=== PATIENT | female | born 1950 | race Caucasian/White ===

== ENCOUNTER 2023-04-13 09:57 | Outpatient (AMB) | payer BC, SELFPAY ==
--- NOTE | 2023-04-13 10:01 | A.OFFVIS_ITS ---
Intake Vital Signs 04/13/23 10:02 Height 5 ft 3 in Weight 101 lb BMI 17.9 BP 98/68 Blood Pressure Location Lt brachial Position Sitting Respiration 14 Pulse 62 Pulse Source Pulse Oximeter Temp 98.6 F Temp Source Skin Pulse Oximetry (%) 98 Oxygen Delivery Method Room Air Intake Visit Reasons: Lt knee pain?pseudogout Allergies acetaminophen [From Vicodin] Adverse Reaction (Unknown, Verified 04/13/23 10:03) Unknown hydrocodone [From Vicodin] Adverse Reaction (Unknown, Verified 04/13/23 10:03) Unknown levofloxacin [From Levaquin] Adverse Reaction (Unknown, Verified 04/13/23 10:03) Palpitations Medication List - Last Reconciled 04/13/23 by Jonathan Bergman MD [id number] 50-300-40 mg 1 cap PO DAILY PRN diltiazem HCl 180 mg PO DAILY ibandronate mg PO levalbuterol tartrate 45 mcg/actuation 2 puffs inhalation Q4-6H PRN lorazepam 0.5 mg PO TID PRN HPI HPI Comments History of Present Illness Details The patient presents for evaluation of multiple areas of pain and questions about treatment for osteoporosis. For about 10 or 15 years she has been having pain at the base of the thumbs. This has been thought to be due to osteoarthritis. She did see a hand surgeon and received occasional corticosteroid injections that were beneficial for a while. Surgery was discussed but not pursued. In about 2008 she developed painful swelling of the right knee. Apparently x-ray showed chondrocalcinosis so she was thought to have pseudogout. She has received a couple of courses of prednisone for that which helped her symptoms relatively quickly. Colchicine had been recommended as a preventive measure but she was worried about its potential interaction with diltiazem that she takes for atrial fibrillation. It sounds like she had last had a flare-up of the right knee inflammatory disease in September. She had 2 episodes last summer. She has avoided taking NSAIDs because of the history of atrial fibrillation. She says in the past Advil seemed to have precipitated that disorder. For about 20 years she has been having intermittent pain in the right shoulder. This was thought to be bursitis. She found physical therapy helpful but sometimes the symptoms do come back. At one point she had a corticosteroid injection. This was followed by soft tissue atrophy anteriorly in the shoulder. Attempts at repairing that with the plastic surgery was not successful and she is left with a scar. Late last year she started to developed right hip pain, mostly in the lateral hip with radiation to the groin. Radiographs showed severe osteoarthritis. This was somewhat surprising to her. However she describes a fall in the 20s when she was skiing that seem to result in a minor fracture in the pelvis. She was also told in the past year that she had a bone density test showing osteoporosis. Every 3 month oral ibandronate was recommended but she was worried about possible side effects so she never took it. Other than the pelvic fracture years ago she does not recall other broken bones. She has a sister and a mother with arthritis, likely osteoarthritis. [facility] Medical History (Updated 04/13/23 @ 14:27 by Jonathan Bergman MD) Anxiety Asthma Atrial fibrillation IBS (irritable bowel syndrome) Migraines Mild mitral valve prolapse Otosclerosis Pain in joint, multiple sites Pseudogout of left knee Surgical History (Updated 04/13/23 @ 07:41 by Jonathan Bergman MD) History of lung surgery Hx of appendectomy Hx of colonoscopy Hx of endoscopy Hx of squamous cell carcinoma excision Hx of tonsillectomy Family History (Updated 04/04/23 @ 13:25 by Maxine Fallon CCM) Father Lung cancer Mother Stroke Sister Heart disease Colon cancer Son Guillain-Oden syndrome Social History (Updated 04/04/23 @ 13:24 by Maxine Fallon CCM) Alcohol intake: current Alcohol intake frequency: a few times a week Patient Tobacco Use Status: Former Tobacco user Review of Systems Const Details: Negative for appetite change, weight change, fever, chills, malaise and fatigue Eyes Details: Occasional migraine headache. Occasionally she gets dry eyes. Negative for vision change, and dizziness ENT Details: Negative for hearing change, tinnitus, oral ulcer, nose bleeds and oral dryness. Card Details: Occasional palpitations attributed to atrial fibrillation. The frequency of that has improved considerably with the use of diltiazem. Negative chest pain, edema and syncope Resp Details: Occasionally symptomatic from asthma with some wheezing. Presently negative for SOB, cough and wheezing GI Details: Negative indigestion/heartburn, nausea, abdominal pain, bowel changes, diarrhea, constipation and bloody stool. Details: Negative for dysuria, hematuria, nocturia, decreased force/flow and genital discharge Skin/Breast Details: Negative for itching, rash, hives, Raynaud's symptoms, sun sensitivity, and skin cancer Neuro Details: Negative for epilepsy, palsy, stroke, changes in speech, tingling and weakness Psych Details: Negative for anxiety, depression and stress Endo Details: Negative for polyuria and polydypsia Cameron/Lymph Details: Negative for excessive bruising or bleeding. Physical Exam Vital Signs: Last Vital Signs Temp 98.6 F 04/13/23 10:02 Pulse 62 04/13/23 10:02 Resp 14 04/13/23 10:02 BP 98/68 04/13/23 10:02 Pulse Ox 98 04/13/23 10:02 Oxygen Delivery Method Room Air 04/13/23 10:02 BMI result Body Mass Index 17.9 APPEARANCE: Patient in no acute distress EYES no redness, pupils equal and reactive to light, eyelids normal EARS: External ear normal, canal clear and tympanic membrane normal. NOSE/SINUS: Airflow through both nares, no nasal discharge, no bleeding THROAT: Oral mucosa moist, no ulcerations NECK: No thyromegaly or masses, no adenopathy, trachea midline. HEART: Regulrar rhythm, S1-S2 heard, no murmurs, rubs or gallops. LUNG: Clear to percussion and auscultation ABD: Normal bowel sounds, no organomegaly, masses or tenderness. EXTREMITIES: No edema, no calf tenderness, normal peripheral pulses. NEURO: Oriented and alert x3. No focal weakness. Reflexes symmetric. Gait normal. SKIN: No inflammatory or neoplastic lesions. Normal color and turgor JOINT EXAM:.?? Cervical Spine:.? Mild discomfort with extremes of normal range of motion. No tenderness. Thoracic Spine:.? No scoliosis.? No tenderness on palpation. Lumbar Spine:.? Alignment normal.? Full range of motion with slight pain at 80 degrees of flexion. No tenderness. Chest Wall:.? No tenderness, swelling, increased warmth or erythema. Hands: Right: Mild bony enlargement without tenderness at the base of the thumb. There is some slight bony enlargement at the PIP joints without tenderness. There is mild bony enlargement with tenderness at the 2nd PIP. Mild thenar atrophy but no sensory loss. Left: Mild bony enlargement and te nderness at the base of the thumb. Mild bony enlargement at the 2nd and 3rd DIP, the 2nd is a bit more enlarged and tender than the 3rd DIP.? There is some mild thenar atrophy but no sensory loss. Wrists:.? Normal pain-free range of motion without tenderness, swelling, increased warmth or erythema. Elbows:. Normal pain-free range of motion without tenderness, swelling, increased warmth or erythema. Shoulders: Right: Slight discomfort with extremes of normal range of motion. No abductor weakness, adenopathy or swelling. She does have an atrophic scar anteriorly in the shoulder. There is mild anterior tenderness. Left: The?? Full range of motion without pain. No tenderness, weakness, swelling, increased warmth or erythema. Hips:.? Right: Mild groin pain with flexion at 90 degrees. Similar pain with abduction of more than 10 degrees. A bit more pain with any attempted internal rotation. Left: Full range of motion without pain. Hip bursa:.? No tenderness. Knees:.?? Normal pain-free range of motion with mild patellofemoral crepitus but no effusion, tenderness, swelling, increased warmth or erythema.? Ankles:.? Normal pain-free range of motion without tenderness, swelling, increased warmth or erythema. Feet:.? Normal pain-free range of motion with mild bony enlargement at the 1st MTP joints. None of those joints are tender. Other joints have no tenderness, swelling, increased warmth or erythema. Tender points:.? No tenderness to digital palpation at the occiput, trapezius, second rib, lateral epicondyle, knees, greater trochanter and gluteal area bilaterally. ? Results Reviewed Results Reviewed: She brings in a CD with radiographs of the right shoulder, right knee, and the hands. The hands show some mild osteoarthritis mostly at the thumb CMC joints bilaterally. The right shoulder x-ray looks normal. The right knee has reasonable preservation of joint space but clearly delineate chondrocalcinosis. T-scores from bone density at [facility] September 2022: AP spine-2.8, total hip- 2.1, femoral neck -2.6 Assessment & Plan Assessment & Plan (1) Knee pain, bilateral: Code(s): M25.561 - Pain in right knee; M25.562 - Pain in left knee (2) Osteoarthritis of hands, bilateral: Code(s): M19.041 - Primary osteoarthritis, right hand; M19.042 - Primary osteoarthritis, left hand (3) Shoulder pain, right: Code(s): M25.511 - Pain in right shoulder (4) Tendinitis of right rotator cuff: Code(s): M75.81 - Other shoulder lesions, right shoulder (5) Osteoarthritis of right hip: Code(s): M16.11 - Unilateral primary osteoarthritis, right hip (6) Osteoporosis: Comment: 09/2022 T scores([facility]) LS spine -2.8, hip -2.1, fem neck -2.6 Code(s): M81.0 - Age-related osteoporosis without current pathological fracture (7) Chondrocalcinosis of right knee: Code(s): M11.261 - Other chondrocalcinosis, right knee Plan The patient has multiple areas of pain. Exam and x-rays confirm osteoarthritis at the base of the thumb bilaterally, worse on the left. She has much limitation and pain with motion of the right hip consistent with osteoarthritis. I suspect that might have been related to the old pelvic fracture she had perhaps inducing some avascular necrosis. That symptom may progress in the future to the point where she could benefit from a hip replacement. She has recurrent episodes of pseudogout in the right knee. She gets the attacks about every 3 or 4 months. The benefits of prophylactic colchicine here are reviewed with her but there would be a risk that it could change her diltiazem level so that might cause more atrial fibrillation or side effects from too much diltiazem. She seems to do okay with periodic doses of prednisone for that when it flares up. Intra-articular corticosteroid injection might also be considered. If there is an aspirate done one would of course look for crystals to confirm the diagnosis of pseudogout. She clearly has however chondrocalcinosis in the knee. She gets intermittent episodes of shoulder pain that have been helped with physical therapy. This sounds like she has rotator cuff impingement and tendinitis. Presently it is not too symptomatic and she should get back to doing her exercises in PT. she had a bad experience -some superficial soft tissue atrophy with a corticosteroid injection there so probably should receive another injection in that region. Her DEXA has shown osteoporosis. I think she should be on a bisphosphonate. She is now walking less than previously because of the hip OA so could be at risk for greater osteoporosis in the future. I think she could either take weekly alendronate or the every 3 month ibandronate as was prescribed. I will leave that up to the primary doctor decide which agent. The patient is concerned about atypical fractures and osteonecrosis of the jaw. I explained to her that these complications were rare. There likelihood was greater when the patient has been on a bisphosphonate for more than 5 years. I would therefore recommend 5 years of treatment with an oral bisphosphonate or 3 years with zoledronic acid. At that point she could go on a drug holiday and a recheck of her bone density would be reasonable. She will call us with any other questions. Review of her record at [facility], her history, her exam, and the x-rays took 64 minutes. Coding Level of Care Code New Pt Level 5 ([id number]) Diagnoses Knee pain, bilateral M25.561; M25.562 Osteoarthritis of hands, bilateral M19.041; M19.042 Shoulder pain, right M25.511 Tendinitis of right rotator cuff M75.81 Osteoarthritis of right hip M16.11 Osteoporosis M81.0 Chondrocalcinosis of right knee M11.261
[2023-04-13 10:02] VITALS: BP 98/68; PULSE 62; RESP 14; TEMP 37; O2SAT 98; BMI 17.9
== END 2023-04-13 11:13 | disposition home or self-care (01) ==
PROVIDERS: PCP Internal Medicine; Visit Provider Internal Medicine Rheumatology
DX: M25.561 Pain in right knee (principal); M25.562 Pain in left knee; M19.041 Primary osteoarthritis, right hand; M19.042 Primary osteoarthritis, left hand; M25.511 Pain in right shoulder; M75.81 Other shoulder lesions, right shoulder; M16.11 Unilateral primary osteoarthritis, right hip; M81.0 Age-related osteoporosis without current pathological fracture; M11.261 Other chondrocalcinosis, right knee
CPT/HCPCS: 99205

== ENCOUNTER → 2023-04-13 09:57 | Outpatient (BNVA) | payer BC, SELFPAY | PROVIDERS: PCP Internal Medicine; Visit Provider Internal Medicine Rheumatology ==